=== PATIENT | male | born 1965 | race Two or more races ===

== ENCOUNTER 2020-03-27 16:26 | Inpatient (IN) | payer BC, OTHER ==
[2020-03-27] VITALS (12 sets, daily range): BP systolic 63–199; BP diastolic 35–98
[~2020-03-27] VITALS: Ht 180.3 cm; Wt 73.0 kg
[2020-03-27] MEDS ORDERED: SODIUM CHLORIDE 0.9% 1,000 ML IV ONE ×3 (16:45→19:00)
[2020-03-27] MEDS ORDERED: FLUMAZENIL 0.1 MG/ML INJ 10ML MDV IV ONE (16:45)
[2020-03-27 17:08] LABS: Basophils # (auto) 0.1 10 ^3/uL (0-0.2); Basophils % (auto) 0.5 % (0.0-2.0); Eosinophils # (auto) 0 10 ^3/uL (0-0.8); Eosinophils % (auto) 0.2 % (0.0-7.0); Hemoglobin 9.8 g/dL (13.5-17.5); Lymphocytes # (auto) 1.4 10 ^3/uL (0.4-5.4); Lymphocytes % (auto) 8.2 % (10.0-50.0); Mean Corpuscular Hemoglobin 29.5 pg (28.0-32.0); Mean Corpuscular Hgb Conc. 31.7 g/dL (32.0-36.0); Monocytes # (auto) 0.7 10 ^3/uL (0-1.3); Neutrophils # (auto) 14.3 10 ^3/uL (1.6-8.6); Neutrophils % (auto) 87.1 % (37.0-80.0); Platelet Count (auto) 275 10^3/uL (140-450); Red Blood Cells 3.34 10^6/uL (4.5-5.90); Red Cell Distribution Width 16.2 % (11.8-14.3); White Blood Cell 16.4 10^3/uL (4.4-10.8)
[2020-03-27 17:15] LABS: Alanine Aminotransferase 15 U/L (16-61); Albumin 2.9 g/dL (3.4-5.0); Anion Gap 17 (5-15); Calcium 7.9 mg/dL (8.5-10.1); Carbon Dioxide 11 mmol/L (21-32); Chloride 104 mmol/L (98-107); Glucose 139 mg/dL (74-106); Potassium 5.2 mmol/L (3.5-5.1); Sodium 132 mmol/L (136-145)
[2020-03-27 17:20] LABS: Alkaline Phosphatase 119 U/L (45-117); Aspartate Aminotransferase 24 U/L (15-37); BUN/Creatinine Ratio 9.3; Bilirubin, Total 0.4 mg/dL (0.2-1.0); GFR African American 6 mL/min; GFR Non-African American 5 mL/min; Total Protein 7.3 g/dL (6.4-8.2)
[2020-03-27 18:03] LABS: Blood Urea Nitrogen 106 mg/dL (7-18)
[2020-03-27] MEDS ORDERED: DEXTROSE (50%) 50ML SYRG IV ONE (18:45)
[2020-03-27] MEDS ORDERED: CALCIUM GLUC 4.65meq/50ml D5AE 50 ML IV ONE (18:45)
[2020-03-27] MEDS ORDERED: SODIUM BICARBONATE 8.4% INJ 50ML SYRINGE IV ONE (18:45)
[2020-03-27] MEDS ORDERED: cefTRIAXone 1GM/50ML D5W 50 ML IV ONE (18:45)
[2020-03-27] MEDS ORDERED: InsuLIN REG 1unit/0.01ml Soln (100units/ml) IV ONE (18:45)
[2020-03-27] MEDS ORDERED: SODIUM ZIRCONIUM CYCL 10 GM PAK PO ONE (18:45)
[2020-03-27] MEDS ORDERED: MORPHINE SULF INJ 2 MG/ML SYRINGE 1ML IV PRN (19:00)
[2020-03-27] MEDS ORDERED: NITROGLYCERIN 0.4 MG SL TAB SL PRN (19:00)
[2020-03-27] MEDS ORDERED: DEXTROSE (50%) 50ML SYRG IV PRN (19:00)
[2020-03-27 19:48] LABS: Uric Acid 8.2 mg/dL (3.5-7.2)
[2020-03-27] MEDS ORDERED: SODIUM BICARBONATE 8.4% INJ 50ML SYRINGE ONE (19:54)
[2020-03-27] MEDS: InsuLIN REG 1unit/0.01ml Soln (100units/ml) SC SCH (20:00)
[2020-03-27] MEDS: SODIUM BICARBONATE 50ML VIAL 50 ML in SOD CHL 0.45% 1,000 ML IV SCH (20:24)
[2020-03-27] MEDS: NOREPINEPHRINE 8 MG/250ML KIT 250 ML IV SCH (20:24)
[2020-03-27] MEDS: ACCU-CHEK COMFORT CURVE STRIP VI SCH (20:25)
[2020-03-27] MEDS ORDERED: SODIUM BICARBONATE 8.4 % INJ 50ML VIAL IV ONE (20:30)
--- NOTE | 2020-03-27 20:41 | NUR ---
Pt being admitted to ICU [facility] admitted to ICU via gurney on security monitor, and portable 02. Patient transferred to bed, connected to ICU monitoring and oxygen, and weighed by bedscale. Patient oriented to Javier clarke RN, unit, room, bed, and unit policies regarding patient care and visiting hours. All questions and concerns addressed, patient verbalized understanding. NOTE: PATIENT IS ON BICARB DRIP AND LEVOPHED DRIP.
--- NOTE | 2020-03-27 21:00 | NUR ---
PATIENT REFUSED VICENTE CATHETER INSERTION.
[2020-03-27] MEDS: PIPERACILLIN-TAZOB 2.25GM 50 ML IV SCH (21:34)
[2020-03-27] MEDS ORDERED: LISI-285 PO (22:55)
[2020-03-27] MEDS ORDERED: CLON0.3D4 EXT (22:55)
[2020-03-27] MEDS ORDERED: OXY20CRT PO (22:56)
[2020-03-27] MEDS ORDERED: GABA100C9 PO (22:56)
[2020-03-27] MEDS ORDERED: CLON0.1T14 PO (22:56)
[2020-03-27] MEDS ORDERED: LORA0.5T20 PO (22:56)
--- NOTE | 2020-03-27 23:29 | NUR ---
BED ALARM BED ALARM IN PATIENT'S ROOM RINGING. WHEN I WENT THE ROOM PATIENT IS STANDING OUT SIDE BED. PATIENT IS CONFUSED. ORIENTED TO PERSON ONLY. BP AT 2328 WAS 63/35, HR 117. LEVOPHED WAS OFF AT 2101. ASSISTED PATIENT BACK TO BED. REORIENTED THE PATIENT. BP RECHECKED 91/43. BED ALARM ON PATIENT SAFETY. WILL MONITOR CLOSELY.
--- NOTE | 2020-03-27 23:45 | NUR ---
LEVOPHED RESTARTED FOR BP 71/40MMHG.
[2020-03-28] VITALS (81 sets, daily range): BP systolic 58–166; BP diastolic 37–93
[2020-03-28] MEDS: ACCU-CHEK COMFORT CURVE STRIP VI SCH ×6 (00:14→20:32)
[2020-03-28] MEDS: InsuLIN REG 1unit/0.01ml Soln (100units/ml) SC SCH ×6 (00:15→20:33)
--- NOTE | 2020-03-28 03:05 | NUR ---
BRADYPNEA PATIENT IS SLEEPING. RESP.RATE 7. WOKE THE PATIENT. PATIENT IS AWAKE ALERT AND ORIENTED. BREATHING NORMAL. WILL MONITOR CLOSELY.
[2020-03-28 04:03] LABS: Urine Bacteria NONE SEEN /hpf (None Seen); Urine Blood Negative /uL (Negative); Urine Hyaline Cast FEW /lpf (0 - 2); Urine Specific Gravity 1.016 (1.001-1.035); Urine WBC 1 /hpf (0 - 3)
[2020-03-28 04:23] LABS: Amphetamine Screen, Urine NEGATIVE (NEGATIVE); Barbiturate Scree,Urine NEGATIVE (NEGATIVE); Benzodiazephine Screen, Urine POSITIVE (NEGATIVE); Cannabinoid Screen, Urine NEGATIVE (NEGATIVE); Cocaine Screen, Urine NEGATIVE (NEGATIVE)
[2020-03-28 04:25] LABS: Alcohol, Urine < 3.0 mg/dL (0-10); Opiate Scree,Urine POSITIVE (NEGATIVE); Phencyclidine Screen, Urine NEGATIVE (NEGATIVE)
[2020-03-28 04:26] LABS: Basophils # (auto) 0 10 ^3/uL (0-0.2); Basophils % (auto) 0.3 % (0.0-2.0); Eosinophils # (auto) 0 10 ^3/uL (0-0.8); Eosinophils % (auto) 0.1 % (0.0-7.0); Hematocrit 26.4 % (41.0-53.0); Hemoglobin 8.4 g/dL (13.5-17.5); Lymphocytes % (auto) 8.4 % (10.0-50.0); Mean Corpuscular Hemoglobin 29.2 pg (28.0-32.0); Mean Corpuscular Hgb Conc. 31.8 g/dL (32.0-36.0); Mean Corpuscular Volume 91.9 fL (80.0-100.0); Monocytes # (auto) 0.8 10 ^3/uL (0-1.3); Monocytes % (auto) 6.5 % (0.0-12.0); Neutrophils # (auto) 10.3 10 ^3/uL (1.6-8.6); Neutrophils % (auto) 84.7 % (37.0-80.0); Platelet Count (auto) 251 10^3/uL (140-450); Red Blood Cells 2.87 10^6/uL (4.5-5.90); White Blood Cell 12.1 10^3/uL (4.4-10.8)
[2020-03-28 04:36] LABS: Creatinine, Urine 207 mg/dL (30.0-125.0); Sodium Urine 24 mmol/L (40-220)
[2020-03-28 04:45] LABS: Albumin 2.4 g/dL (3.4-5.0); Calcium 7.4 mg/dL (8.5-10.1); Potassium 4.9 mmol/L (3.5-5.1)
[2020-03-28 04:49] LABS: BUN/Creatinine Ratio 10.9; Bilirubin, Total 0.3 mg/dL (0.2-1.0); Total Protein 6.1 g/dL (6.4-8.2)
[2020-03-28] MEDS: SODIUM BICARBONATE 50ML VIAL 50 ML in SOD CHL 0.45% 1,000 ML IV SCH ×4 (05:30→20:31)
--- NOTE | 2020-03-28 07:30 | NUR ---
REPORT REPORT RECEIVED FROM NIGHT RNCIERA. PT RESTING IN BED WITH EYES CLOSED AND IN NO APPARENT DISTRESS. VSS. ON LOW DOSE LEVOPHED AT 2 MCG. CONTINUE TO MONITOR.
--- NOTE | 2020-03-28 08:30 | NUR ---
ASSESSMENT PT AWAKE AND A/O X4. FOLLOWS SIMPLE COMMANDS AND ABLE TO HELP REPOSITION SELF IN BED. ON O2 AT 2 L/M VIA NC WITH O2 SAT OF 98%. TELE SR [address] IN LEAD V. PALPABLE PULSES TO ALL EXTREMITIES WITH NO EDEMA NOTED. ABD SOFT WITH + BOWEL SOUNDS. USES URINAL TO VOID. TURNED FOR COMFORT TO HIS RIGHT SIDE. SKIN IS INTACT EXCEPT FOR ABRASION AND MILD BRUISING TO LEFT GREAT TOE, PT STATES RELATED TO A RECENT FALL. PT DENIES PAIN. PT CURRENTLY ON LEVOPHED AT 2 MCG AND BP OF 1116/72. CONTINUE TO MONITOR PT.
[2020-03-28] MEDS: HYDROcodone-ACET 10/325MG TAB PO PRN ×3 (09:23→22:24)
--- NOTE | 2020-03-28 09:23 | NUR ---
PAIN PT WITH C/O HEADACHE PAIN. MEDICATED WITH NORCO 10/325 ONE TABLET PO. CONTINUE TO MONITOR.
[2020-03-28] MEDS ORDERED: INFLUENZA QUAD 2020-2021 0.5 ML SYRG IM ONE (10:00)
[2020-03-28] MEDS: PIPERACILLIN-TAZOB 2.25GM 50 ML IV SCH ×2 (10:53→21:46)
--- NOTE | 2020-03-28 11:59 | NUR ---
RECEIVED PHONE CALL FROM VERIFIED PASSWORD, UPDATED ON PATIENT STATUS. ALL QUESTIONS ADDRESSED AT THIS TIME
[2020-03-28] MEDS: NOREPINEPHRINE 8 MG/250ML KIT 250 ML IV SCH (19:00)
[2020-03-28] MEDS: oxyCODONE HCL 5MG TAB PO PRN (19:12)
--- NOTE | 2020-03-28 20:00 | NUR ---
ASSESSMENT Patient assessed and determined to be fall risk.Fall precautions in place, including side bedrails up X 2, bed alarms on, fall risk wristband in place. Patient instructed to call staff regarding any needs involving getting out of bed or bathroom needs. Patient verbalized understanding.
[2020-03-29] VITALS (24 sets, daily range): BP systolic 97–165; BP diastolic 54–102
[2020-03-29] MEDS: InsuLIN REG 1unit/0.01ml Soln (100units/ml) SC SCH ×4 (00:34→12:00)
[2020-03-29] MEDS: ACCU-CHEK COMFORT CURVE STRIP VI SCH ×4 (00:34→12:00)
[2020-03-29] MEDS: oxyCODONE HCL 5MG TAB PO PRN ×4 (03:44→22:00)
[2020-03-29 04:05] LABS: Basophils # (auto) 0.1 10 ^3/uL (0-0.2); Monocytes # (auto) 0.6 10 ^3/uL (0-1.3); Neutrophils # (auto) 5.9 10 ^3/uL (1.6-8.6)
[2020-03-29 04:07] LABS: Basophils % (auto) 0.6 % (0.0-2.0); Eosinophils # (auto) 0.2 10 ^3/uL (0-0.8); Eosinophils % (auto) 2.7 % (0.0-7.0); Hematocrit 24.8 % (41.0-53.0); Hemoglobin 7.8 g/dL (13.5-17.5); Lymphocytes # (auto) 1.6 10 ^3/uL (0.4-5.4); Lymphocytes % (auto) 19.4 % (10.0-50.0); Mean Corpuscular Hemoglobin 28.6 pg (28.0-32.0); Mean Corpuscular Hgb Conc. 31.7 g/dL (32.0-36.0); Mean Corpuscular Volume 90.4 fL (80.0-100.0); Monocytes % (auto) 7.7 % (0.0-12.0); Neutrophils % (auto) 69.6 % (37.0-80.0); Nucleated Red Blood Cells % 0.1 %; Platelet Count (auto) 252 10^3/uL (140-450); Red Blood Cells 2.74 10^6/uL (4.5-5.90); Red Cell Distribution Width 15.5 % (11.8-14.3); White Blood Cell 8.4 10^3/uL (4.4-10.8)
[2020-03-29 04:26] LABS: Potassium 4.5 mmol/L (3.5-5.1)
[2020-03-29 04:33] LABS: Albumin 2.2 g/dL (3.4-5.0); BUN/Creatinine Ratio 12.8; Bilirubin, Total 0.3 mg/dL (0.2-1.0); Calcium 7.2 mg/dL (8.5-10.1); Total Protein 5.8 g/dL (6.4-8.2)
--- NOTE | 2020-03-29 06:00 | NUR ---
ASSESSMENT PATIENT IS AWAKE, ALERT ORIENTED. VITAL SIGNS ARE STABLE. NO INJURY NOTED.
--- NOTE | 2020-03-29 07:30 | NUR ---
REPORT REPORT RECEIVED FROM NIGHT RNCIERA. PT RESTING IN BED IN NO APPARENT DISTRESS. CONTINUE TO MONITOR.
[2020-03-29] MEDS: SODIUM BICARBONATE 50ML VIAL 50 ML in SOD CHL 0.45% 1,000 ML IV SCH (07:50)
--- NOTE | 2020-03-29 07:57 | NUR ---
ASSESSMENT PT AWAKE AND A/O X4. ABLE TO MOVE ALL EXTREMITIES AND REPOSITION SELF IN BED. LUNGS CLEAR THROUGHOUT. O2 SAT OF 97% ON ROOM AIR. NO COUGH NOTED. TELE SR 97. PALPABLE PULSES TO ALL EXTREMITIES WITH NO EDEMA NOTED. ABD SOFT WITH + BOWEL SOUNDS NOTED. USES URINAL TO VOID. 200 ML CLER YELLOW URINE AT THIS TIME. IVF INFUSING WITH SITE BENIGN TO RFA. ACCUCHECK OF 101. NO COVERAGE NEEDED. BREAKFAST SERVED,.
[2020-03-29] MEDS: PIPERACILLIN-TAZOB 2.25GM 50 ML IV SCH ×2 (09:46→21:34)
--- NOTE | 2020-03-29 09:53 | NUR ---
PT GIVEN SCHEDULED MEDS. PT WITH C/O PAIN TO HIS BACK AND HIS HEADACHE. MEDICATED WITH OXYCODONE 10 MG PO PER MD ORDER. PT ADVISED TO CALL FOR ASSISTANCE BEFORE GETTING UP TO USE THE BATHROOM THE MED MAY MAKE HIM DIZZY. HE AGREED.
--- NOTE | 2020-03-29 10:00 | NUR ---
MD VISIT PT SEEN BY DR BROOKE HUIZAR. MADE HIM AWARE OF PT'S COMPLAINT OF STRONG HEADACHE PAIN S/P FALL APPROX 1 WEEK AGO. ORDER RECEIVED FOR CT SCAN. HE ALSO WANTS ME TO GET THE REPORT FROM THE TELE PSYCH EVAL THAT WAS DONE LAST NIGHT.
[2020-03-29] MEDS: SODIUM BICARBONATE 50ML VIAL 75 ML in SOD CHL 0.45% 1,000 ML IV SCH ×2 (10:10→23:15)
--- NOTE | 2020-03-29 11:42 | NUR ---
PT OFF UNIT FOR CT HEAD. PT ACCOMPANIED BY EJ OTERO RN. 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
--- NOTE | 2020-03-29 11:43 | NUR ---
CONTACTED THE SERVICE TO OBTAIN THE REPORT FROM THE TELE PSYCH CONSULT THAT WAS DONE LAST NIGHT. THEY STATED THEY WILL FAX IT TO US.
--- NOTE | 2020-03-29 11:53 | NUR ---
PT BACK IN ROOM FROM HIS CT SCAN AND CONNECTED TO BEDSIDE MONITORING AND IVF.
--- NOTE | 2020-03-29 12:49 | NUR ---
MD/PHONE CALLED AND SPOKE WITH DR HUIZAR TO NOTIFY OF HEAD CT AND LEFT FOOT XRAY RESULTS AND ALSO THE REPORT FROM THE TELE PSYCH CONSULT DONE LAST NIGHT. HE HAD STATED EARLIER THAT THE PT WAS NOT A DIABETIC AND SO I ASKED ABOUT DISCONTINUING THE ACCUCHECKS AND THAT THE PT'S SUGAR AT NOON WAS 133 WHICH WOULD CALL FOR 2 UNITS REGULAR INSULIN AND HE STATED NOT TO GIVE INSULIN. ORDERS GIVEN TO DOWNGRADE THE PT TO MED SURG STATUS.
--- NOTE | 2020-03-29 15:00 | NUR ---
PT UP TO TOILET AND HAD A LARGE BROWN FORMED BM. SELF DAY CARE AND THEN PT TRANSFERRED TO THE RECLINER. COMPLETE LINEN CHANGE DONE.
--- NOTE | 2020-03-29 18:00 | NUR ---
HAD BEEN SITTING UP IN THE RECLINER SINCE GOING TO THE BATHROOM EARLIER. NOW TRANSFERRED BACK TO THE CHAIR.
--- NOTE | 2020-03-29 18:30 | NUR ---
MD VISIT PT SEEN BY DR HERNANDEZ, CLERK OF COURT. HE ORDERED FOR A LITER OF NS TO BE GIVEN AND IF PT DOES NOT VOID 1 LITER BY MORNING, VICENTE CATHETER TO BE PLACED. PT HAS BEEN REFUSING A VICENTE CATHETER BUT IS WILLING TO HAVE PLACED IF HE DOES NOT VOID THE ONE LITER.
[2020-03-29] MEDS ORDERED: SODIUM CHLORIDE 0.9% 1,000 ML IV ONE (18:45)
--- NOTE | 2020-03-29 19:30 | NUR ---
REPORT TO MASTER VALDIVIA RN,
[2020-03-30] VITALS (11 sets, daily range): BP systolic 132–146; BP diastolic 69–90
[2020-03-30] MEDS: oxyCODONE HCL 5MG TAB PO PRN ×2 (03:37→10:52)
[2020-03-30 04:46] LABS: Basophils # (auto) 0.1 10 ^3/uL (0-0.2); Basophils % (auto) 1.3 % (0.0-2.0); Eosinophils # (auto) 0.1 10 ^3/uL (0-0.8); Eosinophils % (auto) 1.2 % (0.0-7.0); Hematocrit 26.7 % (41.0-53.0); Hemoglobin 8.8 g/dL (13.5-17.5); Lymphocytes # (auto) 1.3 10 ^3/uL (0.4-5.4); Lymphocytes % (auto) 14.1 % (10.0-50.0); Mean Corpuscular Hemoglobin 29.4 pg (28.0-32.0); Mean Corpuscular Hgb Conc. 32.9 g/dL (32.0-36.0); Mean Corpuscular Volume 89.4 fL (80.0-100.0); Monocytes # (auto) 0.7 10 ^3/uL (0-1.3); Monocytes % (auto) 7.7 % (0.0-12.0); Neutrophils % (auto) 75.7 % (37.0-80.0); Platelet Count (auto) 261 10^3/uL (140-450); Red Blood Cells 2.98 10^6/uL (4.5-5.90); Red Cell Distribution Width 15.5 % (11.8-14.3); White Blood Cell 9.3 10^3/uL (4.4-10.8)
[2020-03-30 05:06] LABS: Potassium 4.2 mmol/L (3.5-5.1)
[2020-03-30 05:14] LABS: Albumin 2.4 g/dL (3.4-5.0); BUN/Creatinine Ratio 13.8; Bilirubin, Total 0.3 mg/dL (0.2-1.0); Calcium 6.8 mg/dL (8.5-10.1)
[2020-03-30] MEDS: SODIUM BICARBONATE 50ML VIAL 75 ML in SOD CHL 0.45% 1,000 ML IV SCH (07:15)
--- NOTE | 2020-03-30 08:40 | NUR ---
DR HERNANDEZ AT BEDSIDE DISCUSSED PLAN OF CARE WITH PATIENT. NEW ORDERS PLACED
[2020-03-30] MEDS ORDERED: SODIUM CHLORIDE 0.9% 1,000 ML IV ONE (08:45)
--- NOTE | 2020-03-30 09:28 | NUR ---
DR Harpreet HUIZAR AT BEDSIDE DISCUSSED PLAN OF CARE WITH PATIENT
[2020-03-30] MEDS: PIPERACILLIN-TAZOB 2.25GM 50 ML IV SCH (10:00)
[2020-03-30] MEDS ORDERED: INFLUENZA QUAD 2020-2021 0.5 ML SYRG IM ONE (10:45)
--- NOTE | 2020-03-30 12:22 | NUR ---
DISCHARGE INFORMATION REVIEWED WITH PATIENT. WAITING FOR PATIENTS TO COME TO PICK PATIENT UP. PATIENTS NEW PRESCRIPTION GIVEN TO PATIENT AND HOME MEDS FROM PHARMACY GIVEN TO PATIENT IN [facility]ED [facility].
--- NOTE | 2020-03-30 12:50 | NUR ---
Discharge instructions given as ordered. Encourage to follow up with PMD as instructed. All questions and concerns addressed. Patient verbalized understanding. Medication reconciliation form completed and copy given to patient. Home medications held in Pharmacy returned to patient, and needed vaccines given. IV removed with catheter intact, pressure dressing applied, jesus catheter removed. Telemetry unit returned to ICU. Patient taken to vehicle via wheelchair with all personal belongings, accompanied by staff and family member. No distress noted at time of departure.
== END 2020-03-30 15:48 | disposition home or self-care (01) | DRG 917 ==
LOC: EDBD 16:26 → ER 16:26 → TELE 16:27 → ICU WEST 20:40
PROVIDERS: ADMIT Nurse Practitioner Acute Care; ATTEND Family Medicine
DX: T42.4X1A Poisoning by benzodiazepines, accidental (unintentional), initial encounter (principal); G92 Toxic encephalopathy; N17.0 Acute kidney failure with tubular necrosis; J69.0 Pneumonitis due to inhalation of food and vomit; E44.0 Moderate protein-calorie malnutrition; E87.2 Acidosis; D63.1 Anemia in chronic kidney disease; D72.829 Elevated white blood cell count, unspecified; E86.1 Hypovolemia; E87.5 Hyperkalemia; F17.210 Nicotine dependence, cigarettes, uncomplicated; G89.4 Chronic pain syndrome; I12.9 Hypertensive chronic kidney disease with stage 1 through stage 4 chronic kidney disease, or unspecified chronic kidney disease; N18.9 Chronic kidney disease, unspecified; N32.89 Other specified disorders of bladder; Z79.891 Long term (current) use of opiate analgesic; Z82.3 Family history of stroke; Z82.49 Family history of ischemic heart disease and other diseases of the circulatory system; I95.9 Hypotension, unspecified; M54.5 Low back pain; Z88.5 Allergy status to narcotic agent
CPT/HCPCS: 36415; 36600; 70450; 71045; 73630; 76775; 80053; 80307; 81001; 82570; 82805; 82962; 83036; 83605; 84100; 84132; 84300; 84443; 84484; 84550; 85025; 87040; 87081; 93005; 96361; 96365; 96368; 96375; G0378; J0610; J0696; J1815; J2543

== ENCOUNTER 2020-05-23 22:16 | Inpatient (IN) | payer BC ==
[~2020-05-23] VITALS: Ht 175.3 cm; Wt 67.1 kg
[~2020-05-23 22:16] MED LIST: CLON0.1T14 PO; CLON0.3D4 EXT; GABA100C9 PO; LISI-285 PO; LORA0.5T20 PO; OXY20CRT PO
[2020-05-24 02:34] LABS: Basophils # (auto) 0 10 ^3/uL (0-0.2); Basophils % (auto) 0.1 % (0.0-2.0); Eosinophils # (auto) 0 10 ^3/uL (0-0.8); Hematocrit 28.5 % (41.0-53.0); Hemoglobin 9.1 g/dL (13.5-17.5); Lymphocytes # (auto) 0.6 10 ^3/uL (0.4-5.4); Lymphocytes % (auto) 2.8 % (10.0-50.0); Mean Corpuscular Hemoglobin 29.1 pg (28.0-32.0); Mean Corpuscular Hgb Conc. 32.1 g/dL (32.0-36.0); Mean Corpuscular Volume 90.6 fL (80.0-100.0); Monocytes # (auto) 0.6 10 ^3/uL (0-1.3); Monocytes % (auto) 2.8 % (0.0-12.0); Neutrophils # (auto) 21.5 10 ^3/uL (1.6-8.6); Neutrophils % (auto) 94.3 % (37.0-80.0); Red Blood Cells 3.14 10^6/uL (4.5-5.90); Red Cell Distribution Width 16.9 % (11.8-14.3); White Blood Cell 22.8 10^3/uL (4.4-10.8)
[2020-05-24 02:54] LABS: Magnesium 1.6 mg/dL (1.6-2.6)
[2020-05-24 02:59] LABS: INR 0.93 (0.9-1.15); Partial Thromboplastin Time 30.2 sec (23.0-31.2)
[2020-05-24] MEDS ORDERED: SODIUM CHLORIDE 0.9% 1,000 ML IV ONE (04:00)
[2020-05-24 08:23] LABS: Albumin 2.6 g/dL (3.4-5.0); BUN/Creatinine Ratio 10.3; Calcium 7.1 mg/dL (8.5-10.1)
[2020-05-24 08:26] LABS: Bilirubin, Total 0.3 mg/dL (0.2-1.0); Total Protein 6.9 g/dL (6.4-8.2)
[2020-05-24 08:31] LABS: Potassium 7.9 mmol/L (3.5-5.1)
[2020-05-24] MEDS ORDERED: CALCIUM GLUC 4.65meq/50ml D5AE 50 ML IV ONE (10:15)
[2020-05-24] MEDS ORDERED: ALBUTEROL SULF 2.5 MG/0.5ML(0.5%) NEB SOLN NEB ONE ×2 (10:15→18:15)
[2020-05-24] MEDS ORDERED: DEXTROSE (50%) 50ML SYRG IV ONE (10:15)
[2020-05-24] MEDS ORDERED: InsuLIN REG 1unit/0.01ml Soln (100units/ml) IV ONE (10:15)
[2020-05-24] MEDS ORDERED: SODIUM ZIRCONIUM CYCL 10 GM PAK PO ONE (10:15)
[2020-05-24] MEDS ORDERED: SODIUM BICARBONATE 8.4% INJ 50ML SYRINGE IV ONE (10:15)
[2020-05-24] MEDS ORDERED: FUROSEMIDE 20 MG/2 ML VIAL IV ONE (10:15)
[2020-05-24] MEDS: BUMETANIDE 2.5mg/10ml (0.25 mg/ml) INJ IV ONE ×2 (11:00→11:45)
[2020-05-24] MEDS ORDERED: ALBUTEROL SULF HFA 90MCG INH 200DOSE IN PRN (11:00)
[2020-05-24] MEDS ORDERED: NITROGLYCERIN 0.4 MG SL TAB SL PRN (11:00)
[2020-05-24] MEDS ORDERED: VANCOMYCIN PER PHARMACY 0 MG IV SCH ×2 (11:00→22:15)
[2020-05-24] MEDS ORDERED: MORPHINE SULFATE INJECTION 2 MG/ML SYRG IV PRN ×2 (11:00)
[2020-05-24] MEDS ORDERED: SODIUM BICARBONATE 50ML VIAL 150 ML in D5W 5% 1,000 ML IV SCH (11:30)
[2020-05-24] MEDS: NOREPINEPHRINE 8 MG/250ML KIT 250 ML IV SCH (12:30)
[2020-05-24 12:37] LABS: Lactate Dehydrogenase 268 U/L (87-241)
[2020-05-24] MEDS ORDERED: NOREPINEPHRINE 8 MG/250ML KIT 250 ML IV ONE (12:38)
[2020-05-24 12:39] LABS: CRP High Sensitivity > 19 mg/dL (< 0.3)
[2020-05-24 12:56] LABS: Alcohol, Urine < 3.0 mg/dL (0-10); Amphetamine Screen, Urine NEGATIVE (NEGATIVE); Barbiturate Scree,Urine NEGATIVE (NEGATIVE); Benzodiazephine Screen, Urine NEGATIVE (NEGATIVE); Cannabinoid Screen, Urine NEGATIVE (NEGATIVE); Opiate Scree,Urine POSITIVE (NEGATIVE)
[2020-05-24 12:58] LABS: Urine Bacteria NONE SEEN /hpf (None Seen); Urine Blood 1+ /uL (Negative); Urine Specific Gravity 1.014 (1.001-1.035); Urine WBC 1 /hpf (0 - 3)
[2020-05-24 13:04] LABS: Cocaine Screen, Urine NEGATIVE (NEGATIVE); Phencyclidine Screen, Urine NEGATIVE (NEGATIVE)
[2020-05-24] MEDS: GABAPENTIN 100 MG CAP PO SCH ×2 (13:53→22:52)
[2020-05-24] MEDS ORDERED: HEPARIN SODIUM (PORCINE) 5000 UNITS/ML 1ML VIAL ONE (15:39)
[2020-05-24] MEDS ORDERED: HEPARIN SODIUM (PORCINE) 5000 UNITS/ML 1ML VIAL IV ONE (16:00)
[2020-05-24] MEDS ORDERED: SODIUM BICARBONATE 8.4% INJ 50ML SYRINGE ONE ×2 (16:38→17:57)
[2020-05-24] MEDS: LORazepam 2MG/ML-1ML VIAL IV PRN (16:39)
[2020-05-24] MEDS ORDERED: SODIUM BICARBONATE 8.4 % INJ 50ML VIAL IV ONE (18:00)
[2020-05-24] MEDS ORDERED: SODIUM CHL 0.9% 1000 ML BAG XX ONE (18:15)
[2020-05-24] MEDS ORDERED: ALBUTEROL SULF 2.5 MG/0.5ML(0.5%) NEB SOLN ONE (18:30)
[2020-05-24] MEDS: SODIUM BICARBONATE 50ML VIAL 150 ML in D5W 5% 1,000 ML IV SCH (18:35)
[2020-05-24] MEDS ORDERED: EPOETIN ALFA 4,000 UNIT/ML VL SC ONE (21:00)
[2020-05-24] MEDS ORDERED: PIPERACILLIN-TAZOB 2.25GM 50 ML IV SCH ×2 (22:00)
[2020-05-24] MEDS ORDERED: VANCOMYCIN 1GM/250ML 250 ML IV ONE (22:15)
[2020-05-24] MEDS ORDERED: PIPERACILLIN-TAZOB 2.25GM 50 ML IV ONE (23:45)
[2020-05-25] MEDS: LORazepam 2MG/ML-1ML VIAL IV PRN ×2 (00:02→18:47)
[2020-05-25] MEDS: BUDESONIDE (INHALATION) 180 MCG IH IN SCH ×3 (00:51→22:00)
[2020-05-25 01:49] LABS: Potassium 3.2 mmol/L (3.5-5.1)
[2020-05-25 01:56] LABS: Albumin 2.5 g/dL (3.4-5.0); BUN/Creatinine Ratio 9.6; Calcium 7.3 mg/dL (8.5-10.1)
[2020-05-25 02:00] LABS: Bilirubin, Total 0.3 mg/dL (0.2-1.0); Total Protein 6.8 g/dL (6.4-8.2)
[2020-05-25] MEDS: SODIUM BICARBONATE 50ML VIAL 150 ML in D5W 5% 1,000 ML IV SCH ×2 (06:17→17:09)
[2020-05-25] MEDS: GABAPENTIN 100 MG CAP PO SCH ×3 (06:36→22:56)
[2020-05-25 07:22] LABS: Albumin 2.1 g/dL (3.4-5.0); Calcium 7.1 mg/dL (8.5-10.1); Potassium 3.9 mmol/L (3.5-5.1)
[2020-05-25 07:25] LABS: BUN/Creatinine Ratio 9.7; Bilirubin, Total 0.5 mg/dL (0.2-1.0); Total Protein 6.3 g/dL (6.4-8.2)
[2020-05-25 07:33] LABS: Basophils # (auto) 0 10 ^3/uL (0-0.2); Eosinophils # (auto) 0.2 10 ^3/uL (0-0.8); Hemoglobin 8.3 g/dL (13.5-17.5); Lymphocytes # (auto) 1.3 10 ^3/uL (0.4-5.4); Neutrophils # (auto) 8.5 10 ^3/uL (1.6-8.6); Nucleated Red Blood Cells % 0.1 %; White Blood Cell 10.6 10^3/uL (4.4-10.8)
[2020-05-25 07:36] LABS: Basophils % (auto) 0.1 % (0.0-2.0); Eosinophils % (auto) 1.6 % (0.0-7.0); Hematocrit 25.1 % (41.0-53.0); Lymphocytes % (auto) 11.9 % (10.0-50.0); Mean Corpuscular Hemoglobin 30.2 pg (28.0-32.0); Mean Corpuscular Hgb Conc. 33.2 g/dL (32.0-36.0); Mean Corpuscular Volume 90.8 fL (80.0-100.0); Monocytes # (auto) 0.6 10 ^3/uL (0-1.3); Monocytes % (auto) 6.1 % (0.0-12.0); Neutrophils % (auto) 80.3 % (37.0-80.0); Red Blood Cells 2.76 10^6/uL (4.5-5.90); Red Cell Distribution Width 16.6 % (11.8-14.3)
[2020-05-25] MEDS ORDERED: ENOXAPARIN SOD 40 MG/0.4 ML SYRINGE SC SCH (10:00)
[2020-05-25] MEDS: DexAMETHasone SOD PHOS 10MG/1ML VIAL INJ IV SCH (10:45)
[2020-05-25] MEDS: PIPERACILLIN-TAZOB 2.25GM 50 ML IV SCH ×2 (10:45→22:56)
[2020-05-25] MEDS: CHOLECALCIFEROL (VITD3) 2,000 UNIT CAP/TAB PO SCH (10:46)
[2020-05-25] MEDS: ASCORBIC ACID 1,000 MG TAB PO SCH (10:46)
[2020-05-25] MEDS: ZINC SULFATE 220mg CAP or TAB PO SCH (10:46)
[2020-05-25] MEDS: NOREPINEPHRINE 8 MG/250ML KIT 250 ML IV SCH (14:10)
[2020-05-26] MEDS ORDERED: HYDROcodone-ACET 5/325MG TAB PO ONE (01:45)
[2020-05-26] MEDS: SODIUM BICARBONATE 50ML VIAL 150 ML in D5W 5% 1,000 ML IV SCH ×2 (04:45→16:15)
[2020-05-26] MEDS ORDERED: SODIUM BICARBONATE 8.4% INJ 50ML SYRINGE ONE (05:16)
[2020-05-26] MEDS: GABAPENTIN 100 MG CAP PO SCH ×3 (06:08→21:58)
[2020-05-26] MEDS ORDERED: traMADol HCL 50 MG TAB PO ONE (06:45)
[2020-05-26] MEDS ORDERED: SODIUM CHL 0.9% 1000 ML BAG XX ONE (07:00)
[2020-05-26 10:08] LABS: Magnesium 1.6 mg/dL (1.6-2.6); Phosphorus 5.2 mg/dL (2.5-4.90)
[2020-05-26 11:05] LABS: BUN/Creatinine Ratio 12.5; Calcium 7.1 mg/dL (8.5-10.1); Potassium 3.9 mmol/L (3.5-5.1)
[2020-05-26] MEDS: PIPERACILLIN-TAZOB 2.25GM 50 ML IV SCH ×2 (11:13→21:57)
[2020-05-26] MEDS: DexAMETHasone SOD PHOS 10MG/1ML VIAL INJ IV SCH (11:13)
[2020-05-26] MEDS: HYDROcodone-ACET 5/325MG TAB PO PRN ×2 (11:28→20:54)
[2020-05-26] MEDS: ASCORBIC ACID 1,000 MG TAB PO SCH (13:17)
[2020-05-26] MEDS: CHOLECALCIFEROL (VITD3) 2,000 UNIT CAP/TAB PO SCH (13:17)
[2020-05-26] MEDS: ZINC SULFATE 220mg CAP or TAB PO SCH (13:17)
[2020-05-26] MEDS ORDERED: EPOETIN ALFA 4,000 UNIT/ML VL SC ONE (21:00)
[2020-05-26 23:45] VITALS: BP 153/88
[2020-05-26 23:48] VITALS: BP 153/88
[2020-05-27] MEDS: LORazepam 2MG/ML-1ML VIAL IV PRN (01:03)
[2020-05-27] MEDS: SODIUM BICARBONATE 50ML VIAL 150 ML in D5W 5% 1,000 ML IV SCH ×2 (03:45→20:44)
[2020-05-27] MEDS: HYDROcodone-ACET 5/325MG TAB PO PRN ×2 (04:01→18:13)
[2020-05-27] MEDS: GABAPENTIN 100 MG CAP PO SCH ×3 (05:48→21:48)
[2020-05-27 06:48] LABS: INR 0.97 (0.9-1.15); Partial Thromboplastin Time 27.3 sec (23.0-31.2)
[2020-05-27 08:00] VITALS: BP 126/74
[2020-05-27] MEDS: PIPERACILLIN-TAZOB 2.25GM 50 ML IV SCH ×2 (09:18→21:48)
[2020-05-27 12:00] VITALS: BP 141/79
[2020-05-27] MEDS ORDERED: VANCOMYCIN 1GM/250ML 250 ML IV ONE (12:15)
[2020-05-27 12:36] LABS: Hepatitis B Surface Antigen Negative (Negative); Hepatitis C Antibody Negative (Negative)
[2020-05-27] MEDS ORDERED: LIDOCAINE 2%HCL (LOCAL ANESTH.) INJ 20ML MDV ONE (12:48)
[2020-05-27] MEDS ORDERED: HEPARIN SODIUM (PORCINE) 5000 UNITS/ML 1ML VIAL ONE (13:04)
[2020-05-27] MEDS ORDERED: MIDAZOLAM HCL 2MG/2ML 2ml VIAL (1mg/ml) ONE (13:05)
[2020-05-27] MEDS ORDERED: fentaNYL CITRATE 100 MCG/2 ML VL ONE (13:05)
[2020-05-27 16:00] VITALS: BP 153/85
[2020-05-28] VITALS: BP 143/81
[2020-05-28] MEDS: HYDROcodone-ACET 5/325MG TAB PO PRN ×3 (00:42→12:48)
[2020-05-28] MEDS: SODIUM BICARBONATE 50ML VIAL 150 ML in D5W 5% 1,000 ML IV SCH ×2 (02:21→16:24)
[2020-05-28] MEDS: GABAPENTIN 100 MG CAP PO SCH ×2 (06:38→14:47)
[2020-05-28 08:00] VITALS: BP 140/77
[2020-05-28] MEDS: PIPERACILLIN-TAZOB 2.25GM 50 ML IV SCH (10:13)
[2020-05-28] MEDS: LORazepam 2MG/ML-1ML VIAL IV PRN (12:47)
[2020-05-28 16:00] VITALS: BP 143/90
[2020-05-28 17:22] VITALS: BP 99/56
== END 2020-05-28 19:15 | disposition home or self-care (01) | DRG 871 ==
LOC: EDUNIT# 22:16 → EDBD 22:16 → ER 22:23 → OVERFLOW 22:34 → TELE-CENTR 05-26 22:15
PROVIDERS: ADMIT Nurse Practitioner Acute Care; ATTEND Family Medicine
PROC: 5A1D70Z Performance of Urinary Filtration, Intermittent, Less than 6 Hours Per Day (ICD-10-PCS; 2020-05-24)
PROC: 0JH63XZ Insertion of Tunneled Vascular Access Device into Chest Subcutaneous Tissue and Fascia, Percutaneous Approach (ICD-10-PCS; principal; 2020-05-27)
PROC: 02H633Z Insertion of Infusion Device into Right Atrium, Percutaneous Approach (ICD-10-PCS; 2020-05-27)
PROC: B548ZZA Ultrasonography of Superior Vena Cava, Guidance (ICD-10-PCS; 2020-05-27)
PROC: B5181ZA Fluoroscopy of Superior Vena Cava using Low Osmolar Contrast, Guidance (ICD-10-PCS; 2020-05-27)
PROC: 5A1D70Z Performance of Urinary Filtration, Intermittent, Less than 6 Hours Per Day (ICD-10-PCS; 2020-05-27)
DX: A41.9 Sepsis, unspecified organism (principal); N18.6 End stage renal disease; J18.9 Pneumonia, unspecified organism; D68.59 Other primary thrombophilia; E44.0 Moderate protein-calorie malnutrition; E87.2 Acidosis; F23 Brief psychotic disorder; I12.0 Hypertensive chronic kidney disease with stage 5 chronic kidney disease or end stage renal disease; N17.9 Acute kidney failure, unspecified; D63.1 Anemia in chronic kidney disease; E78.5 Hyperlipidemia, unspecified; E87.5 Hyperkalemia; F11.10 Opioid abuse, uncomplicated; F17.210 Nicotine dependence, cigarettes, uncomplicated; G89.4 Chronic pain syndrome; M06.9 Rheumatoid arthritis, unspecified; Z20.822 Contact with and (suspected) exposure to COVID-19; Z79.891 Long term (current) use of opiate analgesic; Z79.899 Other long term (current) drug therapy; Z82.3 Family history of stroke; Z82.49 Family history of ischemic heart disease and other diseases of the circulatory system; Z91.19 Patient's noncompliance with other medical treatment and regimen; Z99.2 Dependence on renal dialysis
CPT/HCPCS: 36415; 70450; 71045; 74176; 76000; 76942; 78582; 80048; 80053; 80202; 80307; 80320; 81001; 82140; 82728; 82962; 83615; 83735; 84100; 84443; 84484; 85025; 85379; 85610; 85730; 86141; 86803; 87040; 87340; 87426; 90935; 93005; 93970; 94640; 94644; 99152; 99153; G0378; J0610; J1100; J1642; J1815; J2250; J2543